=== PATIENT | male | born 2000 | race Caucasian/White ===

== ENCOUNTER 2023-05-21 17:33 | Emergency (ER) | payer OTHER, SELFPAY ==
[2023-05-21 17:37] VITALS: BP 109/71; PULSE 74; RESP 18; TEMP 36.1; O2SAT 97; BMI 27.4
--- NOTE | 2023-05-21 17:48 | CT_ITS ---
Patient: IVAN Mcdonough RIVERA Facility:?[facility] Patient ID:?[id number] Site Patient ID:?[id number]. Site :?[id number] Study:?CT-Abdomen/Pelvis W/ 89CC ISOVUE 370-05/21/2023 6:08:14 PM Ordering Physician:CARMEN Final Report: INDICATION: Left-sided suprapubic pain. TECHNIQUE: CT abdomen and pelvis acquired with 89 cc Isovue 370 IV contrast. COMPARISON: June 12, 2021. FINDINGS: Lower chest: Unremarkable. Liver: Unremarkable. Normal in size and attenuation. No suspicious masses. Gallbladder and bile ducts: Unremarkable. No stones or inflammation. No biliary dilatation. Pancreas: Unremarkable. No mass or inflammation. Spleen: Unremarkable. Normal in size. No masses. Adrenal glands: Unremarkable. No nodules. Kidneys: Unremarkable. No suspicious masses, stones, or hydronephrosis. GI tract: Unremarkable. Normal in caliber. No sign of mass or inflammation. Post appendectomy. Vasculature: Abdominal aorta is normal in caliber. Mesenteric arteries are patent. Lymph nodes: No lymphadenopathy. Peritoneum/Abdominal Wall: Unremarkable. No sign of mass or infiltration. No free air or significant free fluid. Pelvis: Unremarkable. Bones: Unremarkable for age. IMPRESSION: Unremarkable CT of the abdomen and pelvis. No findings to explain suprapubic pain. Please note that all CT scans at this facility use dose modulation, iterative reconstruction, and/or weight-based dosing when appropriate to reduce radiation dose to as low as reasonably achievable. Dictated by Rolando Murphy MD @ 05/21/2023 6:56:00 PM Signed by:?Rolando Murphy MD @05/21/2023 6:56:00 PM (Electronic Signature)
--- NOTE | 2023-05-21 18:01 | ED_ITS ---
HPI - Abdominal Pain General Date Seen: 05/21/23 Chief Complaint: Abdominal Pain Stated Complaint: abdominal pain Time Seen by Provider: 05/21/23 17:34 Source: patient Mode of arrival: ambulatory Limitations: no limitations History of Present Illness HPI narrative: Abdominal pain starting May 04, 2023. Has painful cramp in lower abdomen and left side. Having loose stools. Started new medication on Tuesday for presumed IBS. No history of inflammatory bowel disease to his knowledge. No nausea or vomiting. Having severe cramps. Patient is a very nice 23-year-old the [employer] student presents here with left- sided abdominal pain with the suprapubic component also. He has had this now for the last 2 weeks or so, describes that also during the day and at night, better with activity, but does wake him up with at least 1 bowel movement at night. He has had no blood in his bowel movements, they have not changed in caliber. Denies any fevers chills or sweats associated with this there is no nausea vomiting in no history of weight loss. Denies any urinary type symptoms. No rashes, no food that he might he took in with this. Is been to the emergency room twice in [place] and wants to a primary care physician. The predominant thought is that this is IBS and he is using dicyclomine with some improvement in his discomfort. Previous history of an appendectomy Related Data Home Medications Medication Instructions Recorded Confirmed dicyclomine 10 mg capsule 10 mg PO 3XD 05/21/23 05/21/23 Allergies Allergy/AdvReac Type Severity Reaction Status Date / Time Penicillins Allergy Unknown Verified 05/21/23 18:01 Review of Systems Status of ROS Reports: 10 or more systems reviewed and unremarkable except as noted in History and below [facility] Social History Smoking Status: Never smoker Exam Narrative: Exam Narrative: Patient is speaking normally, no problem with slurring words, oriented x3. Head eyes ears nose and throat exam show equal pupils, no scleral icterus, extraocular muscles are normal, no facial droop, speech is normal, trachea normal and midline. Thyroid normal midline palpable not enlarged. Chest shows symmetrical rise bilaterally, normal auscultation with no wheezes, no increased work of breathing, no overt bruising or lesions seen, no tenderness is noted on auscultation. Heart sounds normal with no S3-S4 no murmurs clicks or gallops. Abdomen shows no obvious masses or hepatosplenomegaly, no organomegaly, bowel sounds are normal in all quadrants. Mild left sided tenderness is noted , with absence of peritoneal signs. No masses are noted no hernias, bowel sounds are normal. Upper and lower extremities show normal power, normal range of motion, pulses are normal, sensations normal, fine motor movements are normal, pelvis is stable to rocking. Cervical spine shows normal range of motion, and palpably not tender. Thoracic spine shows normal range of motion, and palpably not tender, lumbar spine shows no tenderness to palpation percussion and is otherwise normal range of motion. Skin shows no rashes, petechiae or eccymosis. Const: Vital Signs, click to edit/add: Vital Signs - 24 hr 05/21/23 17:37 Temperature 97.0 F L Pulse Rate [Pulse Oximeter] 74 Respiratory Rate 18 Blood Pressure [Ri ght Upper Arm] 109/71 Pulse Oximetry 97 Oxygen Delivery Me thod Room Air Documenting provider has reviewed patient's vital signs: yes Course Course ED Course: I discussed with the patient, CT is negative, his laboratory tests are reassuring. This does not help him in furthering the diagnostic her cause of this, but is reassuring that there is nothing severe going. I would strongly suggest that he follow up with Gastroenterology, he likely will need a colonoscopy. Combining all the testing that was done and getting copies when he goes to see his GI specialist would be advantageous. Return here if increasing abdominal pain fevers chills, or other signs and symptoms of worsening condition that were not seeing here today. Vital Signs Vital signs: Initial Vital Signs Temperature 97.0 F L 05/21/23 17:37 Temperature Source Temporal Artery Scan 05/21/23 17:37 Pulse Rate 74 05/21/23 17:37 Respiratory Rate 18 05/21/23 17:37 Blood Pressure 109/71 05/21/23 17:37 Blood Pressure Mean 83 05/21/23 17:37 Blood Pressure Position Sitting 05/21/23 17:37 Pulse Oximetry 97 05/21/23 17:37 Oxygen Delivery Method Room Air 05/21/23 17:37 Vital Signs Temperature 97.0 F L 05/21/23 17:37 Pulse Rate 74 05/21/23 17:37 Respiratory Rate 18 05/21/23 17:37 Blood Pressure 109/71 05/21/23 17:37 Pulse Oximetry 97 05/21/23 17:37 Oxygen Delivery Method Room Air 05/21/23 17:37 Temperature 97.0 F L 05/21/23 17:37 Pulse Rate 74 05/21/23 17:37 Respiratory Rate 18 05/21/23 17:37 Blood Pressure 109/71 05/21/23 17:37 Pulse Oximetry 97 05/21/23 17:37 Oxygen Delivery Method Room Air 05/21/23 17:37 Medications Administered Medications: Generic Name Dose Route Start Last Admin Trade Name Freq PRN Reason Stop Dose Admin Sodium Chloride 1,000 mls @ 1,000 mls/hr 05/21/23 18:00 05/21/23 18:28 0.9 % Sodium Chloride 1000 Ml IV 05/21/23 18:59 1,000 mls/hr .Q1H [place] Administration MDM - Abdominal Pain MDM Narrative Medical decision making narrative: During this evaluation of this patient I considered multiple differential diagnosis is which included the life-threatening such as appendicitis, aortic aneurysm, mesenteric ischemia, bowel perforation, volvulus, and bowel obstruction. Other differential diagnosis is include but are not limited to cholecystitis, pancreatitis, hepatitis, gastritis, GERD, diverticulitis, peptic ulcer disease, pyelonephritis/UTI, renal colic/stone, testicular torsion as well as other acute scrotal processes, inflammatory bowel disease, as well as other etiologies Medical Records Attestation: I reviewed the patient's medical records. Lab Data Attestation: I reviewed the patient's lab results. Labs: Lab Results 05/21/23 Range/Units 17:55 WBC 5.43 (4.50-11.00) K/uL RBC 4.98 (4.30-5.90) m/uL Hgb 15.0 (13.5-17.5) gm/dL Hct 43.7 (37.0-53.0) % MCV 88 (80-100) fL MCH 30 (26-34) pg MCHC 34 (32-36) gm/dL RDW Coeff of Bienvenido 12.7 (11.5-15.5) % Plt Count 224 (140-440) K/uL Neut % (Auto) 51.7 (42.0-72.0) % Lymph % (Auto) 34.8 (20-44) % Coleman % (Auto) 10.7 (0.0-11.0) % Eos % (Auto) 2.2 (0.0-7.0) % Baso % (Auto) 0.4 (0.0-3.0) % Neut # (Auto) 2.81 (1.7-7.0) K/uL Lymph # (Auto) 1.89 (0.90-2.90) K/uL Coleman # (Auto) 0.60 (0.00-0.90) K/UL Eos # (Auto) 0.12 (0.00-0.50) K/uL Baso # (Auto) 0.02 (0.00-0.30) K/uL Abs Immat Gran (auto) 0.01 (0.00-0.30) K/uL Imm/Tot Granulo (auto) 0.2 % Sodium 138 (135-149) mmol/L Potassium 3.8 (3.6-5.1) mmol/L Chloride 104 (96-114) mmol/L Carbon Dioxide 23 (20-32) mmol/L Anion Gap 11 (7-15) mEq/L BUN 15 (5-24) mg/dL Creatinine 0.9 (0.5-1.5) mg/dL Estimated Creat Clear 125.61 Estimated GFR 125 ml/min Glucose 89 (60-115) mg/dL Calcium 9.2 (8.4-10.6) mg/dL C-Reactive Protein < 0.5 L (0.5-1.0) mg/dL Imaging Data CT scan - abdomen: Attestation: I have reviewed the pertinent imaging results. My impression: Negative CT for acute finding Radiologist's impression: eft-sided suprapubic pain. TECHNIQUE: CT abdomen and pelvis acquired with 89 cc Isovue 370 IV contrast. COMPARISON: June 12, 2021. FINDINGS: Lower chest: Unremarkable. Liver: Unremarkable. Normal in size and attenuation. No suspicious masses. Gallbladder and bile ducts: Unremarkable. No stones or inflammation. No biliary dilatation. Pancreas: Unremarkable. No mass or inflammation. Spleen: Unremarkable. Normal in size. No masses. Adrenal glands: Unremarkable. No nodules. Kidneys: Unremarkable. No suspicious masses, stones, or hydronephrosis. GI tract: Unremarkable. Normal in caliber. No sign of mass or inflammation. Post appendectomy. Vasculature: Abdominal aorta is normal in caliber. Mesenteric arteries are patent. Lymph nodes: No lymphadenopathy. Peritoneum/Abdominal Wall: Unremarkable. No sign of mass or infiltration. No free air or significant free fluid. Pelvis: Unremarkable. Bones: Unremarkable for age. IMPRESSION: Unremarkable CT of the abdomen and pelvis. No findings to explain suprapubic pain. Please note that all CT scans at this facility use dose modulation, iterative reconstruction, and/or weight-based dosing when appropriate to reduce radiation dose to as low as reasonably achievable. Dictated by Rolando Murphy MD @ 05/21/2023 6:56:00 PM (Electronic Signature) Discharge Plan Discharge Clinical Impression: Abdominal pain Patient Disposition: Home, Self-Care Condition: Stable Instructions: Abdominal Pain (ED) Additional Instructions: I would suggest that you follow-up with the office administration instructor, my suggestion is call your insurance company to see where your coverage would suggest. There is a great local office administration instructor at the [facility] named . Laboratory work was normal, he had a C diff done yesterday that was negative, and her CT report is also negative. I know this is frustrating, but I would continue to take her medication as directed and follow-up with the specialist, no evidence of anything severe on testing today that would suggest or cause for this Prescriptions: No Action dicyclomine 10 mg capsule 10 mg PO 3XD Follow Up/Referrals: Selwyn Curran MD [Staff Physician] - Provider,Not a Local [Primary Care Provider] - Stand Alone Forms: [employer] Info Instructions
[2023-05-21 18:09] LABS: Basophils Absolute Auto 0.02 K/uL (0.00-0.30); Basophils Percent Auto 0.4 % (0.0-3.0); Eosinophils Absolute Auto 0.12 K/uL (0.00-0.50); Eosinophils Percent Auto 2.2 % (0.0-7.0); Hematocrit 43.7 % (37.0-53.0); Immature Granulocytes Abs Auto 0.01 K/uL (0.00-0.30); Immature Granulocytes Pct Auto 0.2 %; Lymphocytes Absolute Auto 1.89 K/uL (0.90-2.90); Lymphocytes Percent Auto 34.8 % (20-44); Mean Corpuscular HGB Conc 34 gm/dL (32-36); Mean Corpuscular Hemoglobin 30 pg (26-34); Mean Corpuscular Volume 88 fL (80-100); Monocytes Percent Auto 10.7 % (0.0-11.0); Neutrophils Absolute Auto 2.81 K/uL (1.7-7.0); Neutrophils Percent Auto 51.7 % (42.0-72.0); Platelet Count* 224 K/uL (140-440); RDW Coefficient of Variation % 12.7 % (11.5-15.5); Red Blood Count 4.98 m/uL (4.30-5.90); White Blood Count* 5.43 K/uL (4.50-11.00)
[2023-05-21 18:12] LABS: Slide Review Reflex No
[2023-05-21 18:23] LABS: Chloride* 104 mmol/L (96-114); Potassium* 3.8 mmol/L (3.6-5.1); Sodium* 138 mmol/L (135-149)
[2023-05-21 18:25] LABS: Creatinine* 0.9 mg/dL (0.5-1.5); Est. Creatinine Clearance* 125.61; Estimated Glomerular Filt Rate 125 ml/min
[2023-05-21 18:26] LABS: Anion Gap 11 mEq/L (7-15); Blood Urea Nitrogen* 15 mg/dL (5-24); Carbon Dioxide* 23 mmol/L (20-32)
[2023-05-21 18:27] LABS: Calcium* 9.2 mg/dL (8.4-10.6); Glucose* 89 mg/dL (60-115)
[2023-05-21] MEDS: 0.9 % SODIUM CHLORIDE 1000 ml 1,000 ML IV (18:28)
--- NOTE | 2023-05-21 18:28 | ED.NURSE ---
Patient had negative cdiff test done yesterday elsewhere. Provider updated.
[2023-05-21 18:30] LABS: C Reactive Protein* < 0.5 mg/dL (0.5-1.0)
== END 2023-05-21 19:33 | disposition home or self-care (01) ==
PROVIDERS: Emergency Provider Family Medicine
DX: R10.9 Unspecified abdominal pain (principal)
CPT/HCPCS: 36415; 74177; 80048; 85025; 86140; 87493; 99284; J7030; Q9967

== ENCOUNTER 2023-07-11 09:45 | Outpatient (RCR) | payer OTHER, SELFPAY | END 2023-10-19 11:46 | disposition home or self-care (01) | PROVIDERS: Visit Provider Family Medicine | DX: M22.2X1 Patellofemoral disorders, right knee (principal); M25.561 Pain in right knee; Z51.89 Encounter for other specified aftercare | CPT/HCPCS: 97110; 97161 ==